=== PATIENT | male | born 1955 | race Caucasian/White ===

== ENCOUNTER 2021-01-04 09:44 | Outpatient (RCR) | payer MEDICARE, OTHER, SELFPAY | END 2021-01-23 16:26 | disposition home or self-care (01) | LOC: HO.WCC 09:44 | PROVIDERS: Visit Provider Surgery | DX: S91.311A Laceration without foreign body, right foot, initial encounter (principal); S97.81XA Crushing injury of right foot, initial encounter; I83.11 Varicose veins of right lower extremity with inflammation; E11.9 Type 2 diabetes mellitus without complications; I10 Essential (primary) hypertension; I25.2 Old myocardial infarction; Z95.9 Presence of cardiac and vascular implant and graft, unspecified; Z79.84 Long term (current) use of oral hypoglycemic drugs; Z87.891 Personal history of nicotine dependence; Z79.2 Long term (current) use of antibiotics | CPT/HCPCS: 97597; 99212; 99213 ==

== ENCOUNTER 2021-01-06 15:10 | Outpatient (REF) | payer MEDICARE, OTHER, SELFPAY ==
--- NOTE | ~2021-01-06 | US_ITS ---
EXAMINATION: ULTRASOUND EXTREMITY NONVASCULAR. CLINICAL INFORMATION: Crush injury to right foot. COMPARISON: None TECHNIQUE: Limited ultrasound imaging through the dorsal foot area was performed. FINDINGS: There is a complex septated fluid collection with internal debris and edema surrounding. It measures 3.47 x 5.31 x 1.13 cm, likely hematoma. An abscess cannot be excluded. US/US extremity nonvascular IMPRESSION: Complex fluid collection along the dorsum of the right foot where patient points to. Question abscess versus old hematoma.
== END 2021-01-06 15:11 | disposition home or self-care (01) ==
LOC: HO.HMGCX 15:10
PROVIDERS: PCP Radiology Diagnostic Radiology; Visit Provider Surgery
DX: S91.301A Unspecified open wound, right foot, initial encounter (principal)
CPT/HCPCS: 76882